=== PATIENT | male | born 1990 | race Caucasian/White ===

== ENCOUNTER 2018-03-13 13:40 | Emergency (ER) | payer OTHER ==
[2018-03-13 13:40] VITALS: BMI 20.3
[2018-03-13 14:19] VITALS: RESP 18; TEMP 98.7; O2SAT 100
[2018-03-13] MEDS ORDERED: Sodium Chloride 0.9% 1,000 ML IV SCH (14:30)
[2018-03-13] MEDS ORDERED: Iohexol 240 (50 ml) ONE (14:54)
[2018-03-13 15:19] LABS: BASO # 0.03 K/mm3 (0.0-2.0); BASO % 0.4 % (0.0-3.0); EOS # 0.5 (0.0-0.7); EOS % 6.9 % (1.5-5.0); GRAN # 2.68 (1.4-6.5); GRAN % 36.9 % (50.0-68.0); LYMPH # 3.5 (1.2-3.4); LYMPH % 48.1 % (22.0-35.0); MEAN CELL VOLUME 85.2 fl (80.0-105.0); MEAN CORPUSCULAR HEMOGLOBIN 29.3 pg (25.0-35.0); MEAN CORPUSCULAR HGB CONC 34.3 g/dl (31.0-37.0); MEAN PLATELET VOLUME 9.4 fl (7.0-11.0); MONO # 0.6 (0.1-0.6); MONO % 7.7 % (1.0-6.0); RBC 5.47 10^6/uL (3.5-6.1); WHITE BLOOD COUNT 7.3 10^3/ul (4.5-11.0)
[2018-03-13 15:25] LABS: ALB/GLOB RATIO 1.3 (1.1-1.8); ALBUMIN 4.7 g/dL (3.0-4.8); ALT/SGPT 123 U/L (7-56); AST/SGOT 55 U/L (17-59); BLOOD UREA NITROGEN 11 mg/dL (7-21); CALCIUM 9.7 mg/dL (8.4-10.5); GFR AFRICAN-AMERICAN > 60; GFR NON-AFRICAN AMERICAN > 60
[2018-03-13 15:36] LABS: URINE BILIRUBIN NEGATIVE (NEGATIVE); URINE BLOOD SMALL (NEGATIVE); URINE GLUCOSE (UA) NEGATIVE (NEGATIVE); URINE LEUKOCYTE ESTERASE NEGATIVE Leu/uL (NEGATIVE); URINE PROTEIN NEGATIVE mg/dL (<30 mg/dL); URINE UROBILINOGEN 0.2 E.U./dL (<1 E.U./dL)
[2018-03-13 15:38] LABS: URINE APPEARANCE CLEAR (CLEAR); URINE COLOR YELLOW (YELLOW)
[2018-03-13 15:56] LABS: URINE WBC 0 - 2 /hpf (0-6)
--- NOTE | 2018-03-13 16:21 | ED PDOC ---
Arrival/HPI - General Historian: Patient - History of Present Illness Time/Duration: Prior to Arrival <Jose Louis - Last Filed: 03/13/18 18:18> <Jami Olson - Last Filed: 03/13/18 18:32> - General Chief Complaint: Male Genitourinary Time Seen by Provider: 03/13/18 13:42 - History of Present Illness Narrative History of Present Illness (Text): 03/13/18 16:13 Patient is a 28M with past medical history of hepatic steatthosis who presents with complaints of right sided pain. Patient states pain initialyl began 3 weeks ago after binge drinking one night. Since then patient has seen his PMD who treated the symptoms as a UTI providing the patient with ciprofloxacin. Patient states the first two days his symptoms became relieved however came thereon after. Patient also endorses increased urgency, frequency, dysuria. Denies hematuria, radiation of pain to groin, nausea, vomiting, shortness of breath, tachycardia. PMD: Dr. [facility] hx: denies Past medical history : denies allergies: denies Family history: non-contributory Social history: <10 cigarettes per day, binge drinking weekends, denies drug use. (Jose Louis) Past Medical History - Provider Review Nursing Documentation Reviewed: Yes - Psychiatric Hx Substance Use: No - Anesthesia Hx Anesthesia: Yes Hx Anesthesia Reactions: No Hx Malignant Hyperthermia: No <Jose Louis - Last Filed: 03/13/18 18:18> Family/Social History - Physician Review Nursing Documentation Reviewed: Yes Family/Social History: Other (non-contributory) Smoking Status: Light Smoker < 10 Cigarettes Daily Hx Alcohol Use: Yes Hx Substance Use: No <Jose Louis - Last Filed: 03/13/18 18:18> Allergies/Home Meds <Jose Louis - Last Filed: 03/13/18 18:18> <Jami Olson - Last Filed: 03/13/18 18:32> Allergies/Adverse Reactions: Allergies No Known Allergies Allergy (Verified 05/25/16 23:24) Review of Systems - Review of Systems Constitutional: Normal. absent: Fatigue, Weight Change, Fevers Eyes: Normal ENT: Normal Respiratory: absent: SOB, Cough Cardiovascular: absent: Chest Pain, Palpitations Gastrointestinal: Abdominal Pain. absent: Diarrhea, Nausea, Vomiting Genitourinary Male: Dysuria, Frequency. absent: Hematuria Skin: absent: Rash, Pruritis Neurological: absent: Headache, Dizziness Psychiatric: absent: Anxiety <Jose Louis - Last Filed: 03/13/18 18:18> Physical Exam Vital Signs Reviewed: Yes Temperature: Afebrile Blood Pressure: Normal Pulse: Regular Respiratory Rate: Normal Appearance: Positive for: Well-Appearing, Non-Toxic, Comfortable Pain Distress: None Mental Status: Positive for: Alert and Oriented X 3 - Systems Exam Head: Present: Atraumatic, Normocephalic Pupils: Present: PERRL Extroacular Muscles: Present: EOMI Conjunctiva: Present: Normal Mouth: Present: Moist Mucous Membranes Neck: Present: Normal Range of Motion Respiratory/Chest: Present: Clear to Auscultation. No: Good Air Exchange, Wheezes, Rhonchi Cardiovascular: Present: Regular Rate and Rhythm, Normal S1, S2. No: Murmurs Abdomen: Present: Normal Bowel Sounds. No: Tenderness, Distention Upper Extremity: Present: Normal Inspection. No: Edema Lower Extremity: Present: Normal Inspection. No: Edema Neurological: Present: GCS=15, CN II-XII Intact, Speech Normal Skin: Present: Warm, Normal Color Psychiatric: Present: Alert, Oriented x 3, Normal Insight, Normal Concentration <Jose Louis - Last Filed: 03/13/18 18:18> Vital Signs Temp Pulse Resp BP Pulse Ox 03/13/18 13:40 98.7 F 80 18 132/84 100 Medical Decision Making - Lab Interpretations Interpretation: No sign. chg./baseline - RAD Interpretation Flower Planter: Radiologist <Jose Louis - Last Filed: 03/13/18 18:18> <Jami Olson - Last Filed: 03/13/18 18:32> ED Course and Treatment: 03/13/18 16:59 CBC, CMP, Urinalysis reveal no abnormalities CT abdomen with PO contrast; results pending 03/13/18 17:49 CT abdomen FINDINGS: LOWER THORAX: Unremarkable. LIVER: Hepatic steatosis. No focal masses. No intrahepatic bile duct dilatation or perihepatic ascites. Slight variability of echogenicity within the angelo hepatis not felt to be clinically consequential. . GALLBLADDER AND BILE DUCTS: Unremarkable. PANCREAS: Unremarkable. No gross lesion or ductal dilatation. SPLEEN: Unremarkable. ADRENALS: Unremarkable. No mass. KIDNEYS AND URETERS: Unremarkable. No hydronephrosis. No solid mass. VASCULATURE: Unremarkable. No aortic aneurysm. BOWEL: Diverticulosis without an acute inflammatory component or other associated pathologic process. Constipation without fecal impaction or obstruction. APPENDIX: Normal appendix. PERITONEUM: Unremarkable. No free fluid. No free air. LYMPH NODES: Unremarkable. No enlarged lymph nodes. BLADDER: Unremarkable. REPRODUCTIVE: Unremarkable. BONES: No acute fracture. OTHER FINDINGS: None. IMPRESSION: No acute findings related to/accounting for the clinical presentation. Additional benign and/or incidental findings described above. Will provide patient with a bowel regimen considering findings of constipation. As for urethritis will administer azithromycin and rocephin one time dose (Jose Louis) - Lab Interpretations Lab Results: 03/13/18 14:50 03/13/18 14:50 Lab Results 03/13/18 14:50: Sodium 144, Potassium 4.4, Chloride 106, Carbon Dioxide 25, Anion Gap 18, BUN 11, Creatinine 0.8, Est GFR ( Amer) > 60, Est GFR (Non- Af Amer) > 60, Random Glucose 107, Calcium 9.7, Total Bilirubin 0.4, AST 55, ALT 123 H, Alkaline Phosphatase 83, Total Protein 8.2, Albumin 4.7, Globulin 3.5 , Albumin/Globulin Ratio 1.3 03/13/18 14:50: Urine Color Yellow, Urine Appearance Clear, Urine pH 6.0, Ur Specific Stokes 1.015, Urine Protein Negative, Urine Glucose (UA) Negative, Urine Ketones Negative, Urine Blood Small H, Urine Nitrate Negative, Urine Bilirubin Negative, Urine Urobilinogen 0.2, Ur Leukocyte Esterase Negative, Urine RBC 1 - 3, Urine WBC 0 - 2, Ur Epithelial Cells None 03/13/18 14:50: WBC 7.3, RBC 5.47, Hgb 16.0, Hct 46.6, MCV 85.2, MCH 29.3, MCHC 34.3, RDW 13.0, Plt Count 265, MPV 9.4, Gran % 36.9 L, Lymph % (Auto) 48.1 H, Calvert % (Auto) 7.7 H, Eos % (Auto) 6.9 H, Baso % (Auto) 0.4, Gran # 2.68, Lymph # (Auto) 3.5 H, Calvert # (Auto) 0.6, Eos # (Auto) 0.5, Baso # (Auto) 0.03 - RAD Interpretation Radiology Orders: 03/13/18 14:41 ABDOMEN & PELVIS [ABD & PELVIS PO CONTRAST ONLY] [CT] Stat - Medication Orders Current Medication Orders: Sodium Chloride (Sodium Chloride 0.9%) 1,000 mls @ 100 mls/hr IV .Q10H NARDA Last Admin: 03/13/18 15:09 Dose: 100 mls/hr eMAR Start Stop Document 03/13/18 15:09 EQ (Rec: 03/13/18 15:09 EQ [id number]) Intravenous Solution Start Date 03/13/18 Start Time 15:09 Discontinued Medications Azithromycin (Zithromax) 1,000 mg PO STAT STA PRN Reason: Protocol Stop: 03/13/18 17:47 Last Admin: 03/13/18 18:15 Dose: 1,000 mg Ceftriaxone Sodium (Rocephin) 250 mg IM STAT STA PRN Reason: Protocol Stop: 03/13/18 17:47 Last Admin: 03/13/18 18:15 Dose: 250 mg IM Administration Charges Document 03/13/18 18:15 EQ (Rec: 03/13/18 18:16 EQ [id number]) Injection Site MAR Injection Site Left Gluteus Medius Charges for Administration # of IM Administrations 1 Ibuprofen (Motrin Tab) 600 mg PO STAT STA Stop: 03/13/18 14:23 Last Admin: 03/13/18 15:08 Dose: 600 mg MAR Pain/Vitals Document 03/13/18 15:08 EQ (Rec: 03/13/18 15:09 EQ [id number]) Pain Reassessment Is This A Pain ReAssessment? No Sleep Is patient sleeping during reassessment? No Presence of Pain Presence of Pain Yes - PA / TITLE SUPERVISOR / Resident Statement MD/DO has reviewed & agrees with the documentation as recorded. <Jami Olson - Last Filed: 03/13/18 18:32> Disposition/Present on Arrival - Present on Arrival Any Indicators Present on Arrival: No History of DVT/PE: No History of Uncontrolled Diabetes: No Urinary Catheter: No History of Decub. Ulcer: No History Surgical Site Infection Following: None - Disposition Have Diagnosis and Disposition been Completed?: Yes Disposition Time: 17:53 Patient Plan: Discharge <Jose Louis - Last Filed: 03/13/18 18:18> <WhitneyJami - Last Filed: 03/13/18 18:32> - Disposition Diagnosis: Constipation, Urethritis Disposition: HOME/ ROUTINE Patient Problems: Current Active Problems Problem Status Onset Constipation Acute Urethritis Acute Condition: GOOD Discharge Instructions (ExitCare): Constipation, Adult (DC), Urethritis (DC) Additional Instructions: Mr. Ramirez, thank you for letting us take care of you today. The emergency medical care you received today was directed at your acute symptoms. If you were prescribed any medication, please fill it and take as directed. It may take several days for your symptoms to resolve. Return to the Emergency Department if your symptoms worsen, do not improve, or if you have any other problems. Please contact your doctor or call one of the physicians/clinics you have been referred to that are listed on the Patient Visit Information form that is included in your discharge packet. Bring any paperwork you were given at discharge with you along with any medications you are taking to your follow up visit. Our treatment cannot replace ongoing medical care by a primary care provider (PCP) outside of the emergency department. Be sure to follow a diet as we discussed: rich in green leafy vegetables, brown rice, oatmeal, foods that contain a great amount of fiber. Thank you for allowing the [facility] team to be part of your care today. Prescriptions: Polyethylene Glycol 3350 [Miralax] 17 gm PO DAILY #7 ml Psyllium [Hydrocil Instant] 1 each PO DAILY #7 packet Sennosides [Senna] 8.6 mg PO ACHS #7 tablet Forms: Pets are family too ([place])
--- NOTE | 2018-03-13 17:08 | CT ---
PROCEDURE: CT Abdomen and Pelvis with contrast HISTORY: Unspecified abdominal pain COMPARISON: 05/13/2017 abdominal ultrasound 05/21/2017 MRI abdomen TECHNIQUE: Oral contrast only. Radiation dose: Total exam DLP = 1085.23 mGy-cm. This CT exam was performed using one or more of the following dose reduction techniques: Automated exposure control, adjustment of the mA and/or kV according to patient size, and/or use of iterative reconstruction technique. FINDINGS: LOWER THORAX: Unremarkable. LIVER: Hepatic steatosis. No focal masses. No intrahepatic bile duct dilatation or perihepatic ascites. Slight variability of echogenicity within the angelo hepatis not felt to be clinically consequential. . GALLBLADDER AND BILE DUCTS: Unremarkable. PANCREAS: Unremarkable. No gross lesion or ductal dilatation. SPLEEN: Unremarkable. ADRENALS: Unremarkable. No mass. KIDNEYS AND URETERS: Unremarkable. No hydronephrosis. No solid mass. VASCULATURE: Unremarkable. No aortic aneurysm. BOWEL: Diverticulosis without an acute inflammatory component or other associated pathologic process. Constipation without fecal impaction or obstruction. APPENDIX: Normal appendix. PERITONEUM: Unremarkable. No free fluid. No free air. LYMPH NODES: Unremarkable. No enlarged lymph nodes. BLADDER: Unremarkable. REPRODUCTIVE: Unremarkable. BONES: No acute fracture. OTHER FINDINGS: None. IMPRESSION: No acute findings related to/accounting for the clinical presentation. Additional benign and/or incidental findings described above.
[2018-03-13] MEDS ORDERED: cefTRIAXone (Rocephin) 250 mg Inj IM STA (17:46)
[2018-03-13 18:42] VITALS: BP 126/77; PULSE 77
== END 2018-03-13 18:40 | disposition home or self-care (01) ==
LOC: ED 13:40
DX: N34.2 Other urethritis (principal); K59.00 Constipation, unspecified
CPT/HCPCS: 74176; 80053; 81001; 85025; 87086; 96372; 99283; J0696; J7040; Q9966

== ENCOUNTER 2018-06-26 17:31 | Emergency (ER) | payer OTHER ==
[2018-06-26 17:46] VITALS: RESP 18; BMI 30.4
--- NOTE | 2018-06-26 17:55 | ED PDOC ---
Arrival/HPI - General Chief Complaint: ENT Problem Time Seen by Provider: 06/26/18 17:45 Historian: Patient - History of Present Illness Narrative History of Present Illness (Text): 06/26/18 17:54 Patient 28-year-old male with no PMH, who is a current smoker, complains of fever, cough productive sputum, beginning 2 days ago and associated with sore throat. Otherwise: (-) fever, (-) chills, (-) chest pain, (-) SOB, (-) dyspnea , (-) hemoptysis, (-) upper back pain, (-) travel, (-) recent prolonged immobility. PMD Neto Past Medical History - Psychiatric Hx Substance Use: No - Anesthesia Hx Anesthesia: Yes Hx Anesthesia Reactions: No Hx Malignant Hyperthermia: No Family/Social History Family/Social History: No Known Family HX Smoking Status: Light Smoker < 10 Cigarettes Daily Hx Alcohol Use: Yes Frequency of alcohol use: Socially Hx Substance Use: No Allergies/Home Meds Allergies/Adverse Reactions: Allergies No Known Allergies Allergy (Verified 06/26/18 17:47) Review of Systems - Review of Systems Constitutional: Fevers. absent: Fatigue, Weight Change ENT: Sore Throat. absent: Rhinorrhea, Sinus Congestion Respiratory: Cough, Sputum. absent: SOB, Wheezing Cardiovascular: absent: Chest Pain, Palpitations Gastrointestinal: absent: Abdominal Pain, Diarrhea, Vomiting Genitourinary Male: absent: Dysuria, Frequency Musculoskeletal: absent: Arthralgias, Back Pain Skin: absent: Rash, Pruritis, Skin Lesions Physical Exam Vital Signs Temp Pulse Resp BP Pulse Ox 06/26/18 17:42 98.2 F 94 H 18 115/69 96 Temperature: Afebrile Blood Pressure: Normal Pulse: Regular Respiratory Rate: Normal Appearance: Positive for: Well-Appearing, Non-Toxic, Comfortable Pain Distress: None Mental Status: Positive for: Alert and Oriented X 3 - Systems Exam Head: Present: Atraumatic, Normocephalic Pupils: Present: PERRL Extroacular Muscles: Present: EOMI Conjunctiva: Present: Normal Mouth: Present: Moist Mucous Membranes Pharnyx: Present: ERYTHEMA (mild erythema to the pharynx). No: EXUDATE, TONSILS ENLARGED, Peritonsilar Swelling, Uvular Deviation, Muffled/Hoarse Voice , Strider Neck: Present: Normal Range of Motion. No: Meningeal Signs, MIDLINE TENDERNESS , Lymphadenopathy Respiratory/Chest: Present: Clear to Auscultation, Good Air Exchange. No: Respiratory Distress, Accessory Muscle Use, Wheezes, Rales, Rhonchi Cardiovascular: Present: Regular Rate and Rhythm, Normal S1, S2. No: Murmurs Abdomen: No: Tenderness, Distention, Peritoneal Signs Back: Present: Normal Inspection Upper Extremity: Present: Normal Inspection. No: Cyanosis, Edema Lower Extremity: Present: Normal Inspection. No: Edema Neurological: Present: GCS=15, CN II-XII Intact, Speech Normal, Motor Func Grossly Intact, Normal Sensory Function Skin: Present: Warm, Dry, Normal Color. No: Rashes Psychiatric: Present: Alert, Oriented x 3, Normal Insight, Normal Concentration Medical Decision Making ED Course and Treatment: 06/26/18 17:53 Advised to follow up with primary care physician in 1-2 days without fail. Advised to take medication as prescribed. Return to the emergency room at any time for any new or worsening symptoms. Patient states he fully agrees with and understands discharge instructions. States that he agrees with the plan and disposition. Verbalized and repeated discharge instructions and plan. I have given the patient opportunity to ask any additional questions. - PA / MEAT GRADER / Resident Statement MD/DO has reviewed & agrees with the documentation as recorded. Disposition/Present on Arrival - Present on Arrival Any Indicators Present on Arrival: No History of DVT/PE: No History of Uncontrolled Diabetes: No Urinary Catheter: No History of Decub. Ulcer: No History Surgical Site Infection Following: None - Disposition Have Diagnosis and Disposition been Completed?: Yes Diagnosis: Cough, Fever Disposition: HOME/ ROUTINE Disposition Time: 17:50 Patient Plan: Discharge Patient Problems: Current Active Problems Problem Status Onset Cough Acute Fever Acute Condition: STABLE Discharge Instructions (ExitCare): Cough in Adults, Fever, Adult (DC) Additional Instructions: Thank you for letting us take care of you today. You were treated for cough and fever. The emergency medical care you received today was directed at your acute symptoms. If you were prescribed any medication, please fill it and take as directed. It may take several days for your symptoms to resolve. Return to the Emergency Department if your symptoms worsen, do not improve, or if you have any other problems. Please contact your doctor in 2 days for re-evaluation and follow up. Bring any paperwork you were given at discharge with you along with any medications you are taking to your follow up visit. Our treatment cannot replace ongoing medical care by a primary care provider (PCP) outside of the emergency department. Thank you for allowing the [facility] team to be part of your care today. Prescriptions: Azithromycin [Z-Tristian] 250 mg PO DAILY #6 tab Guaifenesin [Adult Tussin Chest Congestion] 200 mg PO Q4H PRN #300 ml PRN Reason: Cough
[2018-06-26 18:12] VITALS: BP 127/83; PULSE 84; TEMP 98; O2SAT 97
== END 2018-06-26 18:10 | disposition home or self-care (01) ==
LOC: ED 17:31
DX: R50.9 Fever, unspecified (principal); R05 Cough; F17.210 Nicotine dependence, cigarettes, uncomplicated